=== PATIENT | male | born 1985 | race Caucasian/White ===

== ENCOUNTER 2018-06-04 14:14 | Emergency (ER) | payer OTHER | END 2018-06-04 15:16 | disposition home or self-care (01) | LOC: FTE 14:14 | DX: K64.9 Unspecified hemorrhoids (principal); I25.10 Atherosclerotic heart disease of native coronary artery without angina pectoris; F17.210 Nicotine dependence, cigarettes, uncomplicated | CPT/HCPCS: 99282; Z7502 ==

== ENCOUNTER 2018-06-09 13:36 | Emergency (ER) | payer OTHER ==
[2018-06-09] MEDS: IBUPROFEN 600 MG TAB PO (17:11)
== END 2018-06-09 17:34 | disposition home or self-care (01) ==
LOC: FTE 13:36
DX: S40.012A Contusion of left shoulder, initial encounter (principal); I25.10 Atherosclerotic heart disease of native coronary artery without angina pectoris; W50.0XXA Accidental hit or strike by another person, initial encounter; Y92.321 Football field as the place of occurrence of the external cause; Z87.891 Personal history of nicotine dependence
CPT/HCPCS: 73030; 99283-25